=== PATIENT | female | born 1975 | race American Indian/Alaskan Native ===

== ENCOUNTER 2021-09-27 15:52 | Inpatient (IN) | payer SELFPAY ==
[2021-09-27] MEDS ORDERED: VANCOMYCIN 1,500 MG in SODIUM CHLORIDE 0.9% 500 ML 500 ML IV ONE (18:27)
[2021-09-27] MEDS ORDERED: PIPERACIL/TAZOBACTA 4.5/NS 100 4.5 GM/100 ML VIAL IV ONE (18:28)
[2021-09-27] MEDS ORDERED: SODIUM CHLORIDE 0.9% 1000 ML 2,000 ML ONE (18:33)
[2021-09-27] MEDS ORDERED: SODIUM CHLORIDE 0.9% 1000 ML 1,000 ML IV ONE ×2 (18:35)
--- NOTE | 2021-09-27 19:03 | Emergency Department Report ---
HPI - General Chief Complaint: Altered Mental Status Time Seen by Provider: 09/27/21 17:52 - HPI HPI: 45-year-old female with past medical history significant for morbid obesity, hepatitis C and colon cancer with metastasis to the liver requiring: Stent b rought in by EMS for altered mental status for 1 day. According to the EMS report, the patient became confused over the last 24 hours. She was last normal yesterday, 09/24/21 at noon. Since then she has become progressively more and more confused which prompted mom to call 911. The patient is unresponsive and unable to provide any further history. Further details of the HPI are highly limited due to the patient's current clinical condition. After initial assessment, I was able to speak to the patient's mother and sister in the waiting room. They provide further history saying that the patient has stage IV metastatic colon cancer and that over the last few weeks she has been getting worse. He said over that period of time she lost her vision but this is the first time that she has become confused. She is not displayed any other notable symptoms. They say that she is full code and would want everything done in the event of respiratory or cardiac failure. ED Past Medical Hx - Past Medical History Previous Medical History?: Yes Additional medical history: Hep C, Colon cancer with liver cancer - Surgical History Past Surgical History?: Yes Additional Surgical History: Colon stent ED Review of Systems ROS: Stated complaint: ALT MENTAL STATUS Other details as noted in HPI Comment: Unobtainable due to pts medical conditions Physical Exam - Physical Exam Vital Signs: Vital Signs 09/27/21 16:05 Temperature 98.9 F Pulse Rate 122 H Respiratory 22 Rate Blood Pressure 207/183 [Left] O2 Sat by Pulse 99 Oximetry Physical Exam: GENERAL: Morbidly obese. Obtunded. HEAD: Normocephalic. No obvious signs of trauma. ENT: Dry mucous membranes EYES: Pupils are equal round and reactive to light bilaterally NECK: Supple.Trachea is midline. LUNGS: Tachypneic. Equal chest rise bilaterally. Clear to auscultation bilaterally. CARDIOVASCULAR: Regular rate and rhythm. No murmurs or rubs. VASCULAR: Cap refill 3-4 seconds. 2+ radial pulses ABDOMEN: Abdomen is soft. No rigidity. There is no significant tenderness, guarding or rebound. SKIN: Skin is cool and dry. NEURO: Patient is obtunded and unresponsive. GCS of 6 ([id number]). MUSCULOSKELETAL: No obvious deformities. No significant tenderness. ED Course Vital Signs 09/27/21 16:05 Temperature 98.9 F Pulse Rate 122 H Respiratory 22 Rate Blood Pressure 207/183 [Left] O2 Sat by Pulse 99 Oximetry ED Medical Decision Making - Lab Data Result diagrams: 09/27/21 07:23 09/27/21 07:23 - Medical Decision Making 45-year-old female with history of metastatic colon cancer status post colon stent placement brought in by EMS for 24 hours of significant altered mental status. On initial assessment, the patient is afebrile, tachycardic, and hypertensive. She is obtunded and unresponsive with GCS of 6. Given that she is not protecting her airway and that I anticipated difficult airway I have paged anesthesia to the bedside to assist with intubation. In the meantime we will perform broad work-up including a full set of labs with sepsis order set which has been initiated. We will give 30 mL/kg of IV fluid based on her ideal body weight of 55 kg. We will give broad spectrum Vanc/Zosyn. The patient's nurse alerted me that her blood pressure has dropped to the 60s systolic. After coming to the bedside and recycling the blood pressure while fluids are running, it has improved to the 120s systolic. We will continue to w atch her blood pressure closely. Anesthesia has arrived and is setting up for awake intubation. While sitting up, I went to the waiting room and spoke to the patient's mother and sister regarding her case. They indicate that she has stage IV colon cancer with metastasis to several organs and that over the past few weeks her condition has been deteriorating. She has not been eating and she lost her eyesight a couple weeks ago. Was not until yesterday that she became very confused. We discussed h er current condition and the need for intubation and mechanical ventilation and they expressed their understanding and agreement with this but want to think about her CODE STATUS while this is being done. Patient was successfully intubated by anesthesia at 8 PM. Labs reveal leukocytosis of 14. There are several electrolyte abnormalities including sodium of 150, potassium of 3.6, creatinine of 1.3, and BUN of 37. T bili is elevated at 2.0 with D bili of 1.2. BNP is elevated at 1194. Lactate is elevated at 9.6 consistent with septic shock. Shortly after the intubation, the patient continues to be hypotensive despite 30 mL/kg of IV fluids based on her ideal weight. We will give an additional 1 L of LR. Before starting pressors I went to the waiting room to have discussion with the patient's family. The patient's mother, who is her decision-maker given that the patient has no partner or children, stated that she believes the patient would want to be made DNR/DNI. I had a very extensive discussion with the patient regarding options for management and mom indicates that she does not want any aggressive/invasive interventions performed. She does not want a central line placed and does not want the patient to be put on vasopressors. She is okay with the patient receiving IV fluids and antibiotics but wants to focus on symptomatic care. We will plan to admit the patient to the ICU with plan to consult hospice pradeep. In the meantime we will not pursue any aggressive or invasive procedures or interventions in line with the patient's wishes according to her mother. Nurse was present for part of the discussion and understands the plan moving forward. At 9 PM I spoke with Dr[address] Karimi, the on-call hospitalist regarding the case who accepts the patient for admission and will assume care. I also spoke with Dr. Mckinney of ICU regarding the case. Critical Care Time: Yes Critical care time in (mins) excluding proc time.: 60 Critical care attestation.: If time is entered above; I have spent that time in minutes in the direct care of this critically ill patient, excluding procedure time. Critical care time was spent in the evaluation/assessment, work-up, and management of altered mental status and respiratory failure requiring intubation and mechanical ventilation, septic shock requiring aggressive fluids, IV antibiotics, extensive discussion with the patient's family, extensive bedside management and frequent reevaluation reassessment ED Disposition Clinical Impression: Metastatic colon cancer in female, Morbid obesity, Hypernatremia, Liver failure, Hypokalemia, Acute metabolic encephalopathy, Sepsis with acute hypoxic respiratory failure and septic shock, Multiorgan failure, RAH (acute kidney injury) Disposition: 09 ADMITTED INPATIENT Is pt being admited?: Yes Referrals: PRIMARY CARE,MD [Primary Care Provider] - 3-5 Days
[2021-09-27] MEDS ORDERED: KETAMINE 500 MG/5 ML VIAL MDV ONE (19:06)
[2021-09-27] MEDS ORDERED: SUCCINYLCHOLINE CHLORIDE 200 MG/10 ML INJ MDV ONE (19:06)
[2021-09-27] MEDS ORDERED: MIDAZOLAM 5 MG/5 ML INJ MDV IV ONE (19:53)
[2021-09-27] MEDS ORDERED: ROCURONIUM 50 MG/5 ML INJ IV ONE ×2 (19:57→20:00)
[2021-09-27] MEDS ORDERED: propofoL 200 MG/20 ML VIAL IV ONE ×2 (20:00→20:15)
[2021-09-27 20:02] LABS: INR 1.4 (0.87-1.13)
[2021-09-27 20:03] LABS: Partial Thromboplastin Time 25.7 Sec. (24.2-36.6)
[2021-09-27] MEDS ORDERED: fentaNYL 100 MCG/2 ML INJ IV PRN (20:07)
[2021-09-27] MEDS ORDERED: MIDAZOLAM 2 MG/2 ML INJ IV PRN (20:08)
[2021-09-27 20:10] LABS: Albumin 3.4 g/dL (3.9-5); Bilirubin,Direct 1.2 mg/dL (0-0.2); C-Reactive Protein 10.9 mg/dL (0.00-1.30); Calcium 8.3 mg/dL (8.4-10.2)
[2021-09-27 20:34] LABS: Hematocrit 40.9 % (30.3-42.9); Hemoglobin 12.6 gm/dl (10.1-14.3); Mean Corpuscular HGB Conc 31 % (30-34); Mean Corpuscular Volume 95 fl (79-97); Platelet Count 157 K/mm3 (140-440); Red Blood Count 4.29 M/mm3 (3.65-5.03); Red Cell Distribution Width 19.4 % (13.2-15.2)
--- NOTE | 2021-09-27 20:34 | Progress Note ---
Subjective Date of service: 09/27/21 Principal diagnosis: AMS with Diffecult Intubation Interval history: Called to intubate this patient with Past Medical History significant for morbid obesity, Hepatitis C and colon cancer with metastasis to the liver requiring: Stent brought in by EMS for altered mental status for 1 day. Supine position in sniffing position. Pre O2 x 5-10 minutes, SPO2 100%. Versid 2mg and Propofol 120mg, Intubated with #6 ETT with #4 Udall Scope(Grade 4 view), +ETCO2, +/= BBS. ETT Taped at 20cm at the lip by Respiratory. xray completed. Objective - Constitutional Vitals: Vital Signs - 12hr 09/27/21 09/27/21 09/27/21 16:05 18:46 19:16 Temperature 98.9 F Pulse Rate 122 H 113 H 115 H Respiratory 22 16 20 Rate Blood Pressure 120/73 139/55 Blood Pressure 207/183 [Left] O2 Sat by Pulse 99 100 100 Oximetry 09/27/21 19:45 Temperature Pulse Rate 119 H Respiratory 17 Rate Blood Pressure 118/94 Blood Pressure [Left] O2 Sat by Pulse 100 Oximetry - Labs CBC & Chem 7: 09/27/21 07:23 Labs: Abnormal lab results 09/27/21 09/27/21 09/27/21 Range/Units 07:23 07:23 07:23 PT 18.6 H (12.2-14.9) Sec. INR 1.40 H (0.87-1.13) Sodium 150 H (137-145) mmol/L Carbon Dioxide 19 L (22-30) mmol/L BUN 37 H (7-17) mg/dL Creatinine 1.3 H (0.6-1.2) mg/dL Glucose 148 H (65-100) mg/dL POC Glucose (70-105) mg/dL Calcium 8.3 L (8.4-10.2) mg/dL Magnesium 2.60 H (1.7-2.3) mg/dL Total Bilirubin 2.00 H (0.1-1.2) mg/dL Direct Bilirubin 1.2 H (0-0.2) mg/dL AST 51 H (5-40) units/L Alkaline Phosphatase 192 H (35-129) units/L Ammonia 150.0 H (25-60) umol/L C-Reactive Protein 10.90 H (0.00-1.30) mg/dL NT-Pro-B Natriuret Pep 1194 H (0-450) pg/mL Total Protein 5.9 L (6.3-8.2) g/dL Albumin 3.4 L (3.9-5) g/dL Salicylates (2.8-20.0) mg/dL Acetaminophen (10.0-30.0) ug/mL 09/27/21 09/27/21 09/27/21 Range/Units 18:36 19:00 19:00 PT (12.2-14.9) Sec. INR (0.87-1.13) Sodium (137-145) mmol/L Carbon Dioxide (22-30) mmol/L BUN (7-17) mg/dL Creatinine (0.6-1.2) mg/dL Glucose (65-100) mg/dL POC Glucose 156 H (70-105) mg/dL Calcium (8.4-10.2) mg/dL Magnesium (1.7-2.3) mg/dL Total Bilirubin (0.1-1.2) mg/dL Direct Bilirubin (0-0.2) mg/dL AST (5-40) units/L Alkaline Phosphatase (35-129) units/L Ammonia (25-60) umol/L C-Reactive Protein (0.00-1.30) mg/dL NT-Pro-B Natriuret Pep (0-450) pg/mL Total Protein (6.3-8.2) g/dL Albumin (3.9-5) g/dL Salicylates < 0.3 L (2.8-20.0) mg/dL Acetaminophen 5.0 L (10.0-30.0) ug/mL
[2021-09-27] MEDS ORDERED: MIDAZOLAM 2 MG/2 ML INJ IV ONE (20:35)
[2021-09-27] MEDS: MIDAZOLAM 100 MG in SODIUM CHLORIDE 0.9% 80 ML IV ONE (20:58)
[2021-09-27] MEDS: fentaNYL DRIP Premix 2,000 MCG/100 ML BAG IV SCH (20:58)
[2021-09-27] MEDS ORDERED: HYDROmorphone 1 MG/1 ML INJ IV PRN (22:01)
[2021-09-27] MEDS ORDERED: MORPHINE 2 MG/1 ML INJ IV PRN (22:01)
[2021-09-27] MEDS ORDERED: ALBUTEROL 2.5 MG/3 ML NEBU IH PRN (22:01)
[2021-09-27] MEDS ORDERED: ACETAMINOPHEN 325 MG TAB PO PRN (22:01)
[2021-09-27] MEDS ORDERED: ONDANSETRON 4 MG/2 ML INJ IV PRN (22:01)
--- NOTE | 2021-09-27 22:10 | History and Physical Report ---
History of Present Illness Date of examination: 09/27/21 Date of admission: 09/27/21 21:20 Chief complaint: Altered mental status History of present illness: 45-year-old female with past medical history significant for morbid obesity, hepatitis C and colon cancer with metastasis to the liver requiring: Stent brought in by EMS for altered mental status for 1 day. According to the EMS report, the patient became confused over the last 24 hours. She was last normal yesterday, 09/24/21 at noon. Since then she has become progressively more and more confused which prompted mom to call 911. The patient is unresponsive and unable to provide any further history. She is obtunded and unresponsive with GCS of 6. Given that she is not protecting her airway and sepsis order set which has been initiated. We will give 30 mL/kg of IV fluid based on her ideal body weight of 55 kg. We will give broad spectrum Vanc/Zosyn. The patient's blood pressure has dropped to the 60s systolic. After coming to the bedside and recycling the blood pressure while fluids are running, it has improved to the 120s systolic. We will continue to watch her blood pressure closely. Anesthesia has arrived and is setting up for awake intubation. While sitting up, I went to the waiting room and spoke to the patient's mother and sister regarding her case. They indicate that she has stage IV colon cancer with metastasis to several organs and that over the past few weeks her condition has been deteriorating. She has not been eating and she lost her eyesight a couple weeks ago. Was not until yesterday that she became very confused. We discussed her current condition and the need for intubation and mechanical ventilation and they expressed their understanding and agreement with this but want to think about her CODE STATUS while this is being done. Patient was successfully intubated by anesthesia at 8 PM. Labs reveal leukocytosis of 14. There are several electrolyte abnormalities including sodium of 150, potassium of 3.6, creatinine of 1.3, and BUN of 37. T bili is elevated at 2.0 with D bili of 1.2. BNP is elevated at 1194. Lactate is elevated at 9.6 consistent with septic shock. Shortly after the intubation, the patient continues to be hypotensive despite 30 mL/kg of IV fluids based on her ideal weight. We will give an additional 1 L of LR. Before starting pressors I went to the waiting room to have discussion with the patient's family. The patient's mother, who is her decision-maker given that the patient has no partner or children, stated that she believes the patient would want to be made DNR/DNI. I had a very extensive discussion with the patient regarding options for management and mom indicates that she does not want any aggressive/invasive interventions performed. She does not want a central line placed and does not want the patient to be put on vasopressors. She is okay with the patient receiving IV fluids and antibiotics but wants to focus on symptomatic care. We will plan to admit the patient to the ICU with plan to consult hospice pradeep. In the meantime we will not pursue any aggressive or invasive procedures or interventions in line with the patient's wishes according to her mother. Nurse was present for part of the discussion and understands the plan moving forward. Past History Past Medical History: other (Hep C, colon cancer with liver cancer) Medications and Allergies Allergies Allergy/AdvReac Type Severity Reaction Status Date / Time No Known Allergies Allergy Verified 09/27/21 19:41 Active Meds: Active Medications Fentanyl (Fentanyl 100 Mcg/2 Ml Inj) 50 mcg IV Q10MIN PRN PRN Reason: ANALGESIA Fentanyl Citrate (Fentanyl Drip Premix) 2,000 mcg in 100 mls @ 9.072 mls/hr IV TITR DAVONTE; Protocol Last Admin: 09/27/21 20:58 Dose: 1 mcg/kg/hr, 9.072 mls/hr Documented by: Midazolam HCl 100 mg/ Sodium (Chloride) 100 mls @ 1 mls/hr IV TITR ONE; Protocol Stop: 10/02/21 00:07 Last Admin: 09/27/21 20:58 Dose: 1 mg/hr, 1 mls/hr Documented by: Midazolam HCl (Midazolam 2 Mg/2 Ml Inj) 2 mg IV Q10MIN PRN PRN Reason: Sedation Last Admin: 09/27/21 19:54 Dose: 2 mg Documented by: Review of Systems All systems: negative Constitutional: lethargy, other (Altered mental status, decreased p.o. intake not eating or drinking) Neurological: change in mentation, confusion Exam - Constitutional Vitals: Temp Pulse Resp BP Pulse Ox 98.9 F 116 H 15 118/64 100 09/27/21 16:05 09/27/21 20:36 09/27/21 20:36 09/27/21 20:36 09/27/21 20:36 General appearance: Present: severe distress, well-nourished - EENT Eyes: Present: PERRL ENT: hearing intact, clear oral mucosa - Neck Neck: Present: supple, normal ROM - Respiratory Respiratory effort: normal Respiratory: bilateral: diminished - Cardiovascular Heart Sounds: Present: S1 & S2. Absent: rub, click - Extremities Extremities: pulses symmetrical, No edema Peripheral Pulses: within normal limits - Abdominal General gastrointestinal: Present: soft, non-tender, non-distended, normal bowel sounds Female genitourinary: Present: normal - Integumentary Integumentary: Present: clear, warm, dry - Musculoskeletal Musculoskeletal: gait normal, strength equal bilaterally - Psychiatric Psychiatric: other (Patient is confused and lethargic) - Neurologic Neurologic: CNII-XII intact, moves all extremities, other (Patient is confused and lethargic) HEART Score - HEART Score Troponin: Troponin T 0.011 ng/mL (0.00-0.029) 09/27/21 07:23 Results - Labs CBC & Chem 7: 09/27/21 07:23 09/27/21 07:23 Labs: Laboratory Last Values WBC 14.0 K/mm3 (4.5-11.0) H 09/27/21 07:23 RBC 4.29 M/mm3 (3.65-5.03) 09/27/21 07:23 Hgb 12.6 gm/dl (10.1-14.3) 09/27/21 07:23 Hct 40.9 % (30.3-42.9) 09/27/21 07:23 MCV 95 fl (79-97) 09/27/21 07:23 MCH 29 pg (28-32) 09/27/21 07:23 MCHC 31 % (30-34) 09/27/21 07:23 RDW 19.4 % (13.2-15.2) H 09/27/21 07:23 Plt Count 157 K/mm3 (140-440) 09/27/21 07:23 PT 18.6 Sec. (12.2-14.9) H 09/27/21 07:23 INR 1.40 (0.87-1.13) H 09/27/21 07:23 APTT 25.7 Sec. (24.2-36.6) 09/27/21 07:23 Sodium 150 mmol/L (137-145) H 09/27/21 07:23 Potassium 3.6 mmol/L (3.6-5.0) 09/27/21 07:23 Chloride 101.2 mmol/L (98-107) 09/27/21 07:23 Carbon Dioxide 19 mmol/L (22-30) L 09/27/21 07:23 Anion Gap 33 mmol/L 09/27/21 07:23 BUN 37 mg/dL (7-17) H 09/27/21 07:23 Creatinine 1.3 mg/dL (0.6-1.2) H 09/27/21 07:23 Estimated GFR 54 ml/min 09/27/21 07:23 BUN/Creatinine Ratio 28 % 09/27/21 07:23 Glucose 148 mg/dL (65-100) H 09/27/21 07:23 POC Glucose 156 mg/dL (70-105) H 09/27/21 18:36 Lactic Acid 8.50 mmol/L (0.7-2.0) H* 09/27/21 21:22 Calcium 8.3 mg/dL (8.4-10.2) L 09/27/21 07:23 Magnesium 2.60 mg/dL (1.7-2.3) H 09/27/21 07:23 Total Bilirubin 2.00 mg/dL (0.1-1.2) H 09/27/21 07:23 Direct Bilirubin 1.2 mg/dL (0-0.2) H 09/27/21 07:23 Indirect Bilirubin 0.8 mg/dL 09/27/21 07:23 AST 51 units/L (5-40) H 09/27/21 07:23 ALT 42 units/L (7-56) 09/27/21 07:23 Alkaline Phosphatase 192 units/L (35-129) H 09/27/21 07:23 Ammonia 150.0 umol/L (25-60) H 09/27/21 07:23 Troponin T 0.011 ng/mL (0.00-0.029) 09/27/21 07:23 C-Reactive Protein 10.90 mg/dL (0.00-1.30) H 09/27/21 07:23 NT-Pro-B Natriuret Pep 1194 pg/mL (0-450) H 09/27/21 07:23 Total Protein 5.9 g/dL (6.3-8.2) L 09/27/21 07:23 Albumin 3.4 g/dL (3.9-5) L 09/27/21 07:23 Albumin/Globulin Ratio 1.4 % 09/27/21 07:23 Lipase 17 units/L (13-60) 09/27/21 07:23 TSH 4.320 mlU/mL (0.270-4.200) H 09/27/21 07:23 HCG, Qual Negative (Negative) 09/27/21 07:23 Salicylates < 0.3 mg/dL (2.8-20.0) L 09/27/21 19:00 Acetaminophen 5.0 ug/mL (10.0-30.0) L 09/27/21 19:00 Plasma/Serum Alcohol < 0.01 % (0-0.07) 09/27/21 19:00 Assessment and Plan VTE prophylaxis?: Chemical Plan of care discussed with patient/family: Yes - Patient Problems (1) Acute metabolic encephalopathy Current Visit: Yes Status: Acute Plan to address problem: Altered mental status secondary to sepsis RAH liver cancer. We'll put the patient on ICU. NPO. D5 half-normal saline at the rate of 125 cc/h. We'll put the patient on vancomycin 1 g IV every 12 hours and Zosyn. We'll do the blood cultures sputum culture. Recheck CBC CMP in the morning. Will consult critical care evaluation (2) Sepsis Current Visit: Yes Status: Acute Plan to address problem: IV fluid D5 half-normal saline at the rate of 125 cc/h. Vancomycin 1 g IV every 12 hours. Cefepime 2 g IV every 8 hours. We do the blood culture urine culture. Will consult critical care evaluation. Recheck CBC BMP in the morning (3) RAH (acute kidney injury) Current Visit: Yes Status: Acute Plan to address problem: Avoid nephrotoxic drug. D5 half-normal saline at the rate of 125 cc/h at. R echeck BMP in the morning (4) Hypernatremia Current Visit: Yes Status: Acute Plan to address problem: D5 half-normal saline at the rate of 125 cc/h. We'll monitor the sodium closely. We'll recheck the BMP in the morning (5) Liver failure Current Visit: Yes Status: Acute Plan to address problem: Patient has metastatic colon cancer with metastasis to liver requiring a stent. We'll monitor the patient closely. Recheck CMP in the morning. Prognosis is poor (6) Metastatic colon cancer in female Current Visit: Yes Status: Acute Plan to address problem: Patient has metastatic colon cancer with metastasis to liver requiring a stent. We'll monitor the patient closely. Recheck CMP in the morning. Prognosis is poor (7) Morbid obesity Current Visit: Yes Status: Acute Plan to address problem: We counseled the patient regarding weight reduction (8) DNR (do not resuscitate) Current Visit: Yes Status: Acute Plan to address problem: Patient is DNR as per the family. (9) DVT prophylaxis Current Visit: Yes Status: Acute Plan to address problem: Heparin 5000 units subcu every 8 hours for DVT prophylaxis. Pepcid 20 mg IV every 12 hours for GI prophylaxis. Patient is DNR
[2021-09-27 22:26] LABS: Band Neutrophils # (Manual) 0.4 K/mm3; Giant Platelets 1+; Large Platelets 2+; Platelet Estimate Consistent w Auto; Total Cells Counted 100
[2021-09-27 22:28] LABS: Erythrocyte Sedimentation Rate 54 mm/Hr (0-20)
[2021-09-27] MEDS ORDERED: VANCOMYCIN/NS 1 GM/250 ML 1 GM/250 ML BAG IV SCH (23:00)
[2021-09-27] MEDS ORDERED: D5W/0.9% NACL 1,000 ML IV SCH (23:00)
[2021-09-27] MEDS ORDERED: VANCOMYCIN PHARMACY TO DOSE IV SCH (23:00)
[2021-09-27] MEDS ORDERED: D5W/0.45% NACL 1,000 ML IV SCH (23:00)
--- NOTE | 2021-09-27 23:04 | XRay Report ---
XR chest 1V ap INDICATION / CLINICAL INFORMATION: sepsis/ETT. COMPARISON: None available. FINDINGS: SUPPORT DEVICES: The endotracheal tube terminates 6.3 cm above the radha. Right chest wall port cath eter tip terminates over the cavoatrial junction. HEART /PULMONARY VASCULATURE: No significant abnormality. LUNGS / PLEURA: There is suggestion of mild hazy opacity within the right upper lung, less so within the left lung base. No sizable pleural effusion. No pneumothorax. ADDITIONAL FINDINGS: No significant additional findings. IMPRESSION: 1. Mild hazy airspace opacity within the right upper lung and left lung base, concerning for infiltra te. 2. Endotracheal tube terminates 6.3 cm above the radha. Consider advancement by approximately 2 cm f or more optimal placement. Signer Name: Vinnie Olivares MD Signed: 09/27/2021 10:59 PM Workstation Name: [id number]
[2021-09-27] MEDS: CEFEPIME/NS 2 GM/100 ML 2 GM/100 ML BAG IV SCH (23:15)
[2021-09-28] MEDS ORDERED: IPRATROPIUM/ALBUTEROL SULFATE 3 ML AMPUL.NEB IH SCH (02:00)
[2021-09-28 05:17] LABS: Amphetamine Screen,Urine Negative; Cocaine Screen,Urine Negative; Methadone Screen,Urine Negative; Opiate Screen,Urine Negative
[2021-09-28 05:23] LABS: Bacteria,Urine 4+ /HPF (Negative); Bilirubin,Urine SM (Negative); Blood,Urine NEG (Negative); Color,Urine Amber (Yellow); Hyaline Casts,Urine 49 /LPF; Mucus,Urine 3+ /HPF
[2021-09-28 05:32] LABS: Ictotest,Urine Positive (Negative)
[2021-09-28 05:39] LABS: Benzodiazepines Screen,Urine PRESUMPTIVE POSITIVE; Cannabinoid Screen,Urine PRESUMPTIVE POSITIVE
[2021-09-28 06:26] LABS: Albumin 3.2 g/dL (3.9-5); Calcium 8.6 mg/dL (8.4-10.2)
[2021-09-28] MEDS: fentaNYL DRIP Premix 2,000 MCG/100 ML BAG IV SCH (07:27)
[2021-09-28] MEDS: MIDAZOLAM 100 MG in SODIUM CHLORIDE 0.9% 80 ML IV ONE (07:41)
[2021-09-28] MEDS ORDERED: VANCOMYCIN 2,000 MG in SODIUM CHLORIDE 0.9% 500 ML 500 ML IV SCH (09:00)
[2021-09-28] MEDS ORDERED: FAMOTIDINE 20 MG/2 ML INJ IV SCH (10:00)
[2021-09-28] MEDS ORDERED: HEPARIN 5,000 UNIT/1 ML VIAL SUB-Q SCH (10:00)
--- NOTE | 2021-09-28 10:40 | Progress Note ---
Hospitalist Physical - Constitutional Vitals: Temp Pulse Resp BP Pulse Ox 99.5 F 123 H 22 98/55 98 09/28/21 07:32 09/28/21 08:14 09/28/21 06:10 09/28/21 06:10 09/28/21 08:14 General appearance: Present: severe distress, well-nourished HEART Score - HEART Score Troponin: Troponin T 0.011 ng/mL (0.00-0.029) 09/27/21 07:23 Results - Labs CBC & Chem 7: 09/27/21 07:23 09/28/21 04:59 Labs: Laboratory Last Values WBC 14.0 K/mm3 (4.5-11.0) H 09/27/21 07:23 RBC 4.29 M/mm3 (3.65-5.03) 09/27/21 07:23 Hgb 12.6 gm/dl (10.1-14.3) 09/27/21 07:23 Hct 40.9 % (30.3-42.9) 09/27/21 07:23 MCV 95 fl (79-97) 09/27/21 07:23 MCH 29 pg (28-32) 09/27/21 07:23 MCHC 31 % (30-34) 09/27/21 07:23 RDW 19.4 % (13.2-15.2) H 09/27/21 07:23 Plt Count 157 K/mm3 (140-440) 09/27/21 07:23 Add Manual Diff Complete 09/27/21 07:23 Total Counted 100 09/27/21 07:23 Seg Neuts % (Manual) 82.0 % (40.0-70.0) H 09/27/21 07:23 Band Neutrophils % 3.0 % 09/27/21 07:23 Lymphocytes % (Manual) 7.0 % (13.4-35.0) L 09/27/21 07:23 Reactive Lymphs % (Man) 1.0 % 09/27/21 07:23 Monocytes % (Manual) 7.0 % (0.0-7.3) 09/27/21 07:23 Nucleated RBC % 3.0 % (0.0-0.9) H 09/27/21 07:23 Seg Neutrophils # Man 11.5 K/mm3 (1.8-7.7) H 09/27/21 07:23 Band Neutrophils # 0.4 K/mm3 09/27/21 07:23 Lymphocytes # (Manual) 1.0 K/mm3 (1.2-5.4) L 09/27/21 07:23 Abs React Lymphs (Man) 0.1 K/mm3 09/27/21 07:23 Monocytes # (Manual) 1.0 K/mm3 (0.0-0.8) H 09/27/21 07:23 Eosinophils # (Manual) 0.0 K/mm3 (0.0-0.4) 09/27/21 07:23 Basophils # (Manual) 0.0 K/mm3 (0.0-0.1) 09/27/21 07:23 Metamyelocytes # 0.0 K/mm3 09/27/21 07:23 Myelocytes # 0.0 K/mm3 09/27/21 07:23 Promyelocytes # 0.0 K/mm3 09/27/21 07:23 Blast Cells # 0.0 K/mm3 09/27/21 07:23 WBC Morphology Not Reportable 09/27/21 07:23 Hypersegmented Neuts Not Reportable 09/27/21 07:23 Hyposegmented Neuts Not Reportable 09/27/21 07:23 Hypogranular Neuts Not Reportable 09/27/21 07:23 Smudge Cells Not Reportable 09/27/21 07:23 Toxic Granulation Not Reportable 09/27/21 07:23 Toxic Vacuolation Not Reportable 09/27/21 07:23 Dohle Bodies Not Reportable 09/27/21 07:23 Pelger-Huet Anomaly Not Reportable 09/27/21 07:23 Suzy Rods Not Reportable 09/27/21 07:23 Platelet Estimate Consistent w auto 09/27/21 07:23 Clumped Platelets Not Reportable 09/27/21 07:23 Plt Clumps, EDTA Not Reportable 09/27/21 07:23 Large Platelets 2+ 09/27/21 07:23 Giant Platelets 1+ 09/27/21 07:23 Platelet Satelliting Not Reportable 09/27/21 07:23 Plt Morphology Comment Not Reportable 09/27/21 07:23 RBC Morphology Not Reportable 09/27/21 07:23 Dimorphic RBCs Not Reportable 09/27/21 07:23 Polychromasia 1+ 09/27/21 07:23 Hypochromasia Not Reportable 09/27/21 07:23 Poikilocytosis Not Reportable 09/27/21 07:23 Anisocytosis Not Reportable 09/27/21 07:23 Microcytosis Not Reportable 09/27/21 07:23 Macrocytosis Not Reportable 09/27/21 07:23 Spherocytes Not Reportable 09/27/21 07:23 Pappenheimer Bodies Not Reportable 09/27/21 07:23 Sickle Cells Not Reportable 09/27/21 07:23 Target Cells Not Reportable 09/27/21 07:23 Tear Drop Cells Not Reportable 09/27/21 07:23 Ovalocytes Not Reportable 09/27/21 07:23 Helmet Cells Not Reportable 09/27/21 07:23 [place] Bodies Not Reportable 09/27/21 07:23 [place] Rings Not Reportable 09/27/21 07:23 [place] Cells Not Reportable 09/27/21 07:23 Bite Cells Not Reportable 09/27/21 07:23 Crenated Cell Not Reportable 09/27/21 07:23 Elliptocytes Not Reportable 09/27/21 07:23 Acanthocytes (Spur) Not Reportable 09/27/21 07:23 Rouleaux Not Reportable 09/27/21 07:23 Hemoglobin C Crystals Not Reportable 09/27/21 07:23 Schistocytes Not Reportable 09/27/21 07:23 Malaria parasites Not Reportable 09/27/21 07:23 ESR 54 mm/Hr (0-20) 09/27/21 07:23 Ran Bodies Not Reportable 09/27/21 07:23 Hem Pathologist Commnt No 09/27/21 07:23 PT 18.6 Sec. (12.2-14.9) H 09/27/21 07:23 INR 1.40 (0.87-1.13) H 09/27/21 07:23 APTT 25.7 Sec. (24.2-36.6) 09/27/21 07:23 ABG pH 7.518 (7.320-7.450) H 09/28/21 04:38 POC ABG pCO2 23.3 mmHg (32.0-48.0) L 09/28/21 04:38 POC ABG pO2 180.4 mmHg (83-108) H 09/28/21 04:38 POC ABG HCO3 18.5 09/28/21 04:38 ABG O2 Saturation 99.4 (0-100) 09/28/21 04:38 POC ABG Base Excess -2.5 09/28/21 04:38 ABG Hemoglobin 13.3 (12.0-17.5) 09/28/21 04:38 ABG Oxyhemoglobin 99.0 (94-98) H 09/28/21 04:38 ABG Methemoglobin 0.3 (0.0-1.5) 09/28/21 04:38 ABG Sodium 144.7 mmol/L (136.0-145.0) 09/28/21 04:38 ABG Potassium 3.5 mmol/L (3.40-4.50) 09/28/21 04:38 ABG Chloride 106.0 mmol/L (98-107) 09/28/21 04:38 ABG Glucose 162 mg/dL (65-95) H 09/28/21 04:38 Carboxyhemoglobin 0.1 (0.5-1.5) L 09/28/21 04:38 FiO2 % 45.0 09/28/21 04:38 Sodium 147 mmol/L (137-145) H 09/28/21 04:59 Potassium 4.3 mmol/L (3.6-5.0) 09/28/21 04:59 Chloride 104.8 mmol/L (98-107) 09/28/21 04:59 Carbon Dioxide 15 mmol/L (22-30) L 09/28/21 04:59 Anion Gap 32 mmol/L 09/28/21 04:59 BUN 45 mg/dL (7-17) H 09/28/21 04:59 Creatinine 1.8 mg/dL (0.6-1.2) H 09/28/21 04:59 Estimated GFR 37 ml/min 09/28/21 04:59 BUN/Creatinine Ratio 25 % 09/28/21 04:59 Glucose 138 mg/dL (65-100) H 09/28/21 04:59 POC Glucose 153 mg/dL (70-105) H 09/28/21 02:02 Lactic Acid 8.50 mmol/L (0.7-2.0) H* 09/27/21 21:22 Calcium 8.6 mg/dL (8.4-10.2) 09/28/21 04:59 Magnesium 2.60 mg/dL (1.7-2.3) H 09/27/21 07:23 Total Bilirubin 1.60 mg/dL (0.1-1.2) H 09/28/21 04:59 Direct Bilirubin 1.2 mg/dL (0-0.2) H 09/27/21 07:23 Indirect Bilirubin 0.8 mg/dL 09/27/21 07:23 AST 135 units/L (5-40) H 09/28/21 04:59 ALT 58 units/L (7-56) H 09/28/21 04:59 Alkaline Phosphatase 174 units/L (35-129) H 09/28/21 04:59 Ammonia 150.0 umol/L (25-60) H 09/27/21 07:23 Troponin T 0.011 ng/mL (0.00-0.029) 09/27/21 07:23 C-Reactive Protein 10.90 mg/dL (0.00-1.30) H 09/27/21 07:23 NT-Pro-B Natriuret Pep 1194 pg/mL (0-450) H 09/27/21 07:23 Total Protein 6.8 g/dL (6.3-8.2) 09/28/21 04:59 Albumin 3.2 g/dL (3.9-5) L 09/28/21 04:59 Albumin/Globulin Ratio 0.9 % 09/28/21 04:59 Lipase 17 units/L (13-60) 09/27/21 07:23 TSH 4.320 mlU/mL (0.270-4.200) H 09/27/21 07:23 HCG, Qual Negative (Negative) 09/27/21 07:23 Arterial Blood Glucose 162 mg/dL (65-95) H 09/28/21 04:38 Urine Color [place] (Yellow) 09/28/21 05:02 Urine Turbidity Slightly-cloudy (Clear) 09/28/21 05:02 Urine pH 5.0 (5.0-7.0) 09/28/21 05:02 Ur Specific [place] 1.026 (1.003-1.030) 09/28/21 05:02 Urine Protein 30 mg/dl mg/dL (Negative) 09/28/21 05:02 Urine Glucose (UA) Neg mg/dL (Negative) 09/28/21 05:02 Urine Ketones Neg mg/dL (Negative) 09/28/21 05:02 Urine Blood Neg (Negative) 09/28/21 05:02 Urine Nitrite Neg (Negative) 09/28/21 05:02 Urine Bilirubin Sm (Negative) 09/28/21 05:02 Urine Ictotest Positive (Negative) 09/28/21 05:02 Urine Urobilinogen 4.0 mg/dL (<2.0) 09/28/21 05:02 Ur Leukocyte Esterase Mod (Negative) 09/28/21 05:02 Urine WBC (Auto) 129.0 /HPF (0.0-6.0) H 09/28/21 05:02 Urine RBC (Auto) 23.0 /HPF (0.0-6.0) 09/28/21 05:02 U Epithel Cells (Auto) 6.0 /HPF (0-13.0) 09/28/21 05:02 Urine Bacteria (Auto) 4+ /HPF (Negative) 09/28/21 05:02 Hyaline Casts 49 /LPF 09/28/21 05:02 Urine Mucus 3+ /HPF 09/28/21 05:02 Ur Yeast w Hyphae Few /HPF 09/28/21 05:02 Urine Yeast (Budding) 3+ /HPF 09/28/21 05:02 Salicylates < 0.3 mg/dL (2.8-20.0) L 09/27/21 19:00 Urine Opiates Screen Negative 09/28/21 05:02 Urine Methadone Screen Negative 09/28/21 05:02 Acetaminophen 5.0 ug/mL (10.0-30.0) L 09/27/21 19:00 Ur Barbiturates Screen Negative 09/28/21 05:02 Ur Phencyclidine Scrn Negative 09/28/21 05:02 Ur Amphetamines Screen Negative 09/28/21 05:02 U Benzodiazepines Scrn Presumptive positive 09/28/21 05:02 Urine Cocaine Screen Negative 09/28/21 05:02 U Marijuana (THC) Screen Presumptive positive 09/28/21 05:02 Drugs of Abuse Note Disclamer 09/28/21 05:02 Plasma/Serum Alcohol < 0.01 % (0-0.07) 09/27/21 19:00 Microbiology: Microbiology 09/27/21 19:00 Peripheral/Venous Blood Culture - Preliminary Culture in Progress 09/27/21 19:00 Peripheral/Venous Blood Culture - Preliminary Culture in Progress Richards/IV: Voiding Method Indwelling Catheter Active Medications - Current Medications Current Medications: Generic Name Dose Route Start Last Admin Trade Name Freq PRN Reason Stop Dose Admin Acetaminophen 650 mg 09/27/21 22:01 Acetaminophen 325 Mg Tab PO Q4H PRN Pain MILD(1-3)/Fever >100.5/ARCE Albuterol 2.5 mg 09/27/21 22:01 Albuterol 2.5 Mg/3 Ml Nebu IH Q4HRT PRN Shortness Of Breath Famotidine 20 mg 09/28/21 10:00 Famotidine 20 Mg/2 Ml Inj IV BID DAVONTE Fentanyl 50 mcg 09/27/21 20:07 Fentanyl 100 Mcg/2 Ml Inj IV Q10MIN PRN ANALGESIA Heparin Sodium (Porcine) 5,000 unit 09/28/21 10:00 Heparin 5,000 Unit/1 Ml Vial SUB-Q Q12HR DAVONTE Hydromorphone HCl 0.5 mg 09/27/21 22:01 Hydromorphone 1 Mg/1 Ml Inj IV Q3H PRN Pain , Severe (7-10) Fentanyl Citrate 2,000 mcg in 100 mls @ 9.072 mls/hr 09/27/21 21:00 09/28/21 07:27 Fentanyl Drip Premix IV 1 mcg/kg/hr TITR DAVONTE 9.072 mls/hr Administration Protocol 1 MCG/KG/HR Midazolam HCl 100 mg/ Sodium 100 mls @ 1 mls/hr 09/27/21 20:08 09/28/21 07:41 Chloride IV 10/02/21 00:07 Not Given TITR ONE Protocol 1 MG/HR Dextrose/Sodium Chloride 1,000 mls @ 125 mls/hr 09/27/21 23:00 D5/0.45ns IV DIRECT DAVONTE Cefepime HCl 2 gm in 100 mls @ 200 mls/hr 09/27/21 23:00 09/27/21 23:15 Cefepime/Ns 2 Gm/100 Ml IV 200 mls/hr Q8H DAVONTE Administration Protocol Vancomycin HCl 1,500 mg/ 530 mls @ 333.333 mls/hr 09/28/21 22:00 Sodium Chloride IV Q24H DAVONTE Midazolam HCl 2 mg 09/27/21 20:08 09/27/21 19:54 Midazolam 2 Mg/2 Ml Inj IV 2 mg Q10MIN PRN Administration Sedation Morphine Sulfate 2 mg 09/27/21 22:01 Morphine 2 Mg/1 Ml Inj IV Q4H PRN Pain, Moderate (4-6) Ondansetron HCl 4 mg 09/27/21 22:01 Ondansetron 4 Mg/2 Ml Inj IV Q8H PRN Nausea And Vomiting Sodium Chloride 10 ml 09/28/21 10:00 Sodium Chloride 0.9% 10 Ml Flush Syringe IV BID DAVONTE Sodium Chloride 10 ml 09/27/21 22:01 Sodium Chloride 0.9% 10 Ml Flush Syringe IV PRN PRN LINE FLUSH
[2021-09-28] MEDS: CEFEPIME/NS 2 GM/100 ML 2 GM/100 ML BAG IV SCH (10:52)
--- NOTE | 2021-09-28 11:10 | Death Note ---
Note Date of : 09/28/21 Time of : 11:14 Time Pronounced: 11:14 - Preliminary Cause of (problem) (1) Cardiac arrest Preliminary cause of Called to see patient for unresponsiveness. On exam the patient did not respond to verbal or physical stimuli. Absent heart and breath sounds.Absent peripheral pulses. Pupils are fixed and dilated. Patient pronounced at 11:14. Next of kin driving to hospital to see patient. (2) Acute metabolic encephalopathy Preliminary cause of (3) Sepsis Preliminary cause of (4) Sepsis with acute hypoxic respiratory failure and septic shock Preliminary cause of
[2021-09-28 12:33] VITALS: BP 44/23
--- NOTE | 2021-09-28 15:14 | Death Summary ---
Summary - Providers Date of service: 09/28/21 Consults: 09/27/21 21:27 Consult to Physician [CONS] Routine Comment: Dr. Esparza spoke with Dr. Mckinney @ [phone] Consulting Provider: JANICE MCKINNEY Physician Instructions: Reason For Exam: vent management 09/27/21 22:03 Consult to Dietitian/Nutrition [CONS] Routine Physician Instructions: Reason For Exam: Reason for Consult: Malnutrition Attending: YAYA SALEH MD - summary Date of admission: 09/27/21 21:20 Date of : 09/28/21 Disposition: 45-year-old female with past medical history significant for morbid obesity, hepatitis C, and stage IV colon cancer with metastasis to the liver and possible order organs, and most recently lost her eyesight, was brought in by EMS for altered mental status for 1 day. According to the EMS report, the patient became confused over the last 24 hours. She was last normal yesterday, 09/24/21 at noon. Since then she has become progressively more and more confused which prompted mom to call 911. Upon arrival in the ED patient was found unresponsive and obtunded with a GCS of 6. Patient was found to be in severe septic shock, hypotensive, with lactic acidosis. Given that patient was unable to protect her airway, patient was intubated in the Ed by anesthesia. Patient remains hypotensive despite septic boluses. Before pressors were initiated, the patient's mother, who is her decision-maker given that the patient has no partner or children, stated that she believes the patient would want to be made DNR/DNI. Extensive discussion in regards of patient's condition and possible options for management were clearly stated to patient's mom. Patient's mom voiced understanding of the information provided but indicated that her daughter does not want any aggressive/invasive interventions performed. She then stated that she did not want a central line placed and did not want the patient to be put on vasopressors. She is okay with the patient receiving IV fluids and antibiotics but wants to focus on symptomatic care and possible Hospice. Case management was consulted for possible inpatient hospice placement and patient was then transferred to ICU for ventilatory management. Per Case management patient is uninsured and due to her age will not be acceptable into inpatient hospital. Barriers to inpatient hospice were discussed with the patient's family. Plan was for possible terminal extubation, family were on their way to the hospital. Around 1100, sudden drop in patient's HR noted on the monitor which was followed with asystole. MD was notified. On exam the patient did not respond to verbal or physical stimuli. Absent heart and breath sounds.Absent peripheral pulses. Pupils are fixed and dilated. Patient pronounced at 11:14. Patient's mother was notified via phone, family in route to hospital to see patient.
[2021-09-28] MEDS ORDERED: VANCOMYCIN 1,500 MG in SODIUM CHLORIDE 0.9% 500 ML 500 ML IV SCH (22:00)
== END 2021-09-28 11:15 | DRG 871 ==
LOC: ED 15:52 → CC1 21:20
PROVIDERS: ADMIT Hospitalist; ATTEND Internal Medicine
PROC: 5A1935Z Respiratory Ventilation, Less than 24 Consecutive Hours (ICD-10-PCS; principal; 2021-09-27)
PROC: 0BH17EZ Insertion of Endotracheal Airway into Trachea, Via Natural or Artificial Opening (ICD-10-PCS; 2021-09-27)
PROC: 4A033R1 Measurement of Arterial Saturation, Peripheral, Percutaneous Approach (ICD-10-PCS; 2021-09-27)
DX: A41.9 Sepsis, unspecified organism (principal); G93.41 Metabolic encephalopathy; R65.21 Severe sepsis with septic shock; J96.01 Acute respiratory failure with hypoxia; N17.9 Acute kidney failure, unspecified; E87.0 Hyperosmolality and hypernatremia; E46 Unspecified protein-calorie malnutrition; Z68.44 Body mass index [BMI] 60.0-69.9, adult; K72.90 Hepatic failure, unspecified without coma; E66.01 Morbid (severe) obesity due to excess calories; E87.6 Hypokalemia; Z66 Do not resuscitate; I46.9 Cardiac arrest, cause unspecified; Z85.038 Personal history of other malignant neoplasm of large intestine
CPT/HCPCS: 36415; 36600; 71045; 80048; 80053; 80076; 80307; 80320; 81001; 82140; 82805; 82962; 83690; 83735; 83880; 84443; 84484; 84703; 85007; 85025; 85610; 85652; 85730; 86140; 87040; 87070; 87205; 94002; 94003; 99291; G0378; J3490; J7120; Q0162; G0480; J0330; J0692; J2250; J2704; J3010; J3370; J7030; J7040